=== PATIENT | male | born 1960 | race Caucasian/White ===

== ENCOUNTER 2017-11-02 20:30 | Outpatient (CLI) | payer BC | END 2017-11-02 20:31 | LOC: SLEEPLAB 20:30 | PROVIDERS: ATTEND Family Medicine | DX: G47.30 Sleep apnea, unspecified (principal); G47.33 Obstructive sleep apnea (adult) (pediatric); R53.83 Other fatigue; R09.89 Other specified symptoms and signs involving the circulatory and respiratory systems; R06.83 Snoring; I10 Essential (primary) hypertension; E11.9 Type 2 diabetes mellitus without complications | CPT/HCPCS: 95811 ==

== ENCOUNTER 2017-12-28 08:52 | Outpatient (CLI) | payer BC ==
--- NOTE | 2017-12-28 10:35 | MRI ---
MRI LUMBAR SPINE: HISTORY: Back pain. FINDINGS: Multiplanar, multisequence noncontrast-enhanced MRI images of the lumbar spine obtained. For the purposes of this dictation, the last freely mobile vertebral body will be considered to be th e L5 vertebral body. All other vertebral bodies are numbered according to this. T12-L1, L1-2, L2-3: Unremarkable. L3-4: There is mild facet hypertrophy. A small amount of fluid is seen in the L3-4 facet joints. T he central canal and neural foramen are patent. L4-5: Disk desiccation is seen. There is a broad-bases central disk protrusion minimally but not si gnificantly compressing the thecal sac. There is bilateral facet hypertrophy seen. The disk is greg ccated with a broad-based disk protrusion extending into the central canal and neural foramen. This results in moderate left and moderate to severe right-sided neural foraminal narrowing. The central protrusion minimally but not significantly compresses the lateral recesses. L5-S1: Disk desiccation is seen. There is a left lateral recess and foraminal disk protrusion exten ding into the left L5-S1 lateral recess and neural foramen. This does compress the left S1 nerve cliff t as it passes through the lateral recess. The right S1 neural foramen is not significantly compress ed. The right and left L5 nerve roots are visualized. There is moderate to severe right-sided L5-S1 neural foraminal narrowing with some compression of the right L5 nerve root due to facet hypertrophy . Mild to moderate left L5-S1 neural foraminal narrowing is also seen. IMPRESSION: 1. Broad-based central disk protrusion at L4-5. 2. Left L5-S1 lateral recess disk protrusion compressing the left S1 nerve root. POS: GABBY
== END 2017-12-28 08:53 | disposition home or self-care (01) ==
LOC: TBSIIMAG 08:52
PROVIDERS: ATTEND Family Medicine
DX: M51.16 Intervertebral disc disorders with radiculopathy, lumbar region (principal); M21.372 Foot drop, left foot
CPT/HCPCS: 72148

== ENCOUNTER 2023-08-20 19:39 | Emergency (ER) | payer BC, SELFPAY ==
[2023-08-20] MEDS ORDERED: Morphine 4 MG/ML VIAL ONE (21:36)
[2023-08-20] MEDS ORDERED: Dexamethasone 10 MG/ML VIAL ONE (21:36)
[2023-08-20] MEDS ORDERED: Methocarbamol 500 MG TAB ONE (21:37)
== END 2023-08-20 21:58 | disposition home or self-care (01) ==
LOC: ERS 19:39
DX: S16.1XXA Strain of muscle, fascia and tendon at neck level, initial encounter (principal); M54.42 Lumbago with sciatica, left side; M54.41 Lumbago with sciatica, right side; E11.9 Type 2 diabetes mellitus without complications; X58.XXXA Exposure to other specified factors, initial encounter
CPT/HCPCS: 96372; 99283; J1100; J2270